=== PATIENT | female | born 1975 | race Hispanic/Latino ===

== ENCOUNTER 2017-05-30 16:15 | Emergency (ER) | payer OTHER ==
[2017-05-30 16:37] VITALS: BP 112/76; PULSE 80; RESP 18; TEMP 98.1; O2SAT 99
--- NOTE | 2017-05-30 17:45 | C.PDOC ---
History Of Present Illness 41yo female, states she recently moved to this area from [place], [place] and was following up with a psychiatrist in [place] however since moving here, she has run out of her medication. Patient states she was taking Remeron and ran out and is requesting a medication refill. She states she went to [facility] yesterday and was sent to [facility] clinic. She followed up at the clinic today and was not able to be evaluated by a psychiatrist after which she presented to this facility. Patient denies any suicidal or homicidal ideation. She has no medical complaints. Time Seen by Provider: 05/30/17 17:30 Chief Complaint (Nursing): Med Refill History Per: Patient History/Exam Limitations: no limitations Onset/Duration Of Symptoms: Days Past Medical History Reviewed: Historical Data, Nursing Documentation, Vital Signs Vital Signs: Last Vital Signs Temp 98.1 F 05/30/17 16:33 Pulse 80 05/30/17 16:33 Resp 18 05/30/17 16:33 BP 112/76 05/30/17 16:33 Pulse Ox 99 05/30/17 17:46 - Medical History PMH: Depression Denies: Diabetes, Hepatitis, HIV, HTN, Seizures, Sexually Transmitted Disease Surgical History: No Surg Hx Family History: States: No Known Family Hx - Social History Hx Alcohol Use: Yes Hx Substance Use: No - Immunization History Hx Tetanus Toxoid Vaccination: Yes Hx Influenza Vaccination: Yes Hx Pneumococcal Vaccination: Yes Review Of Systems Except As Marked, All Systems Reviewed And Found Negative. Constitutional: Positive for: Other (requesting medication refill) Psych: Negative for: Suicidal ideation, Other (homicidal ideation) Physical Exam - Physical Exam Appears: Non-toxic Skin: Normal Color Head: Normacephalic Eye(s): bilateral: Normal Inspection Neck: Supple Chest: Symmetrical Cardiovascular: Rhythm Regular Respiratory: Normal Breath Sounds Extremity: Normal ROM Neurological/Psych: Oriented x3, Normal Speech ED Course And Treatment O2 Sat by Pulse Oximetry: 99 (RA) Pulse Ox Interpretation: Normal Medical Decision Making Medical Decision Making: Impression: Medication refill Plan: -- Crisis evaluation Progress: -- pin worker discussed case and states it is okay to give the patient 3 weeks supply of Remeron as normal placement time with a psychiatrist takes 3 weeks. Patient informed that this is the only instance she will be given the prescription in ER and informed that it is imperative to follow up with her psychiatrist for continued care. She expresses understanding and is agreeable. Disposition - Disposition Referrals: [facility] [Outside] Disposition: HOME/ ROUTINE Disposition Time: 17:42 Condition: STABLE Additional Instructions: Follow up in [facility] within 1-2 days. Return to ED if feel worse. Prescriptions: Mirtazapine [Remeron] 30 mg PO QPM #20 tab Instructions: Mirtazapine Forms: [employer] ([place]) - Clinical Impression Clinical Impression: Medicine refill - PA / HOUSE PRINCIPAL / Resident Statement MD/DO has reviewed & agrees with the documentation as recorded. - Scribe Statement The provider has reviewed the documentation as recorded by the Scribe (Silvia Odom) Provider Attestation: All medical record entries made by the Scribe were at my direction and personally dictated by me. I have reviewed the chart and agree that the record accurately reflects my personal performance of the history, physical exam, medical decision making, and the department course for this patient. I have also personally directed, reviewed, and agree with the discharge instructions and disposition.
== END 2017-05-30 18:01 | disposition home or self-care (01) ==
LOC: C.ER 16:15
DX: Z76.0 Encounter for issue of repeat prescription (principal); F32.9 Major depressive disorder, single episode, unspecified